=== PATIENT | female | born 1940 | race Caucasian/White ===

== ENCOUNTER 2016-03-31 07:55 | Day surgery (SDC) | payer MEDICARE, OTHER ==
[2016-03-31] VITALS (8 sets, daily range): BP systolic 120–156; BP diastolic 57–77; PULSE 57–75; RESP 13–19; O2SAT 94–98
[~2016-03-31] VITALS: Ht 165.1 cm; Wt 93.6 kg
[~2016-03-31 07:55] MED LIST: AMLO5TAB2 PO; ATEN50TA PO; CALC-78 PO; CeFAZolin Inj 2 GM in IV Premix 1 EACH IV SCH; ESOM20CA28 PO; GABA-502 PO; MULT-1073 PO; PRAV40TA PO
[2016-03-31] MEDS ORDERED: Ondansetron 2 mg/mL 2 mL Inj ONE (07:56)
[2016-03-31] MEDS ORDERED: fentaNYL-PF 50 mCg/mL 2 mL Inj ONE (07:56)
[2016-03-31] MEDS ORDERED: Propofol 10,000 mCg/mL 20 mL Inj ONE (07:56)
[2016-03-31] MEDS ORDERED: Dexamethasone 4 mg/mL Inj ONE (07:56)
[2016-03-31] MEDS: Lactated Ringer's 1,000 ML IV SCH ×2 (08:13→10:49)
[2016-03-31] MEDS ORDERED: Bupivacaine-MPF 0.5% W/EPI 30 mL Inj INJ ONE (11:16)
[2016-03-31] MEDS ORDERED: HYDROmorphone 1 mg/mL Inj IVPUSH PRN (11:30)
[2016-03-31] MEDS ORDERED: Phenylephrine 10,000 mCg/mL Inj IVPUSH PRN (11:30)
[2016-03-31] MEDS ORDERED: Lactated Ringer's 500 ML IV PRN (11:30)
[2016-03-31] MEDS ORDERED: Ondansetron 2 mg/mL 2 mL Inj IVPUSH PRN (11:30)
[2016-03-31] MEDS ORDERED: MetoCLOpramide 5 mg/mL 2 mL Inj IVPUSH PRN (11:30)
[2016-03-31] MEDS ORDERED: Lactated Ringer's 1,000 ML IV SCH (11:30)
[2016-03-31] MEDS ORDERED: Dexamethasone 4 mg/mL Inj IVPUSH PRN (11:30)
[2016-03-31] MEDS ORDERED: EPHEDrine Sulfate 50 mg/mL Inj IVPUSH PRN (11:30)
[2016-03-31] MEDS ORDERED: fentaNYL-PF 50 mCg/mL 2 mL Inj IVPUSH PRN (11:30)
--- NOTE | 2016-03-31 11:30 | PCM.HPANE ---
Patient Data Surgeon Admitting Provider: Attending Provider:Willi Melo MD Primary Care Physician:Angelito Lopez MD Other Provider:Caden Shaw Anesthesia Reason for Visit Left Breast Mass Ht/WT & BMI Height (Feet): 5 Height (Inches): 5 Weight (Kilograms): 93.6 Body Mass Index 34.00 Allergies Coded Allergies: No Known Drug Allergies (Verified Allergy, Unknown, 03/31/16) Past Anesthesia History Anesthesia History: Positive for:: Anesthesia Reactions (TROUBLE WAKING UP AFTER ANESTHESIA), Denies:: Abnormal Airway, Difficult Intubation, Fam Anesthesia Reaction, Fam Malignant Hypertherm, Malignant Hyperthermia Diabetes History Hx Diabetes?: No MRSA MRSA: No Medications Blood Thinner: Aspirin Home Meds Incl Beta Carola: Yes (ATENOLOL) Date Beta Carola Taken: Mar 31, 2016 Time Beta Carola Taken: 06 Reported Medications Multivits-Min/FA/Lycopene/Lut (Centrum Silver Tablet)1 Each Tablet1 Each PO DAILY 12/04/15 Gabapentin 300 Mg [id number] Mg PO TID Ref 0 08/23/15 Calcium Carbonate/Vitamin D3 (Calcium 500 + Vit D Caplet)1 Each Tablet5,000 Units PO DAILY 08/23/15 Amlodipine 5 Mg Tablet5 Mg PO DAILY Ref 0 02/22/15 Esomeprazole Magnesium (Nexium)20 Mg Capsule.dr20 Mg PO DAILY 30 Days Ref 0 10/09/13 Atenolol 50 Mg Kljrva65 Mg PO DAILY #30 TABLET Ref 0 10/09/13 Discontinued Reported Medications Pravastatin 40 Mg [id number] Mg PO DAILY Ref 0 08/23/15 oxyCODONE-Acetaminophen 7.5-325 mg 1 Each Tablet1-2 Tab PO Q6H PRN For Pain Ref 0 08/23/15 Multivits-Min/FA/Lycopene/Lut (Centrum Silver Tablet)1 Each Tablet1 Each PO DAILY 08/23/15 History History of ENT Problems?: Yes HEENT History: Positive for:: Cataracts (had surgery) Dysphagia (A LITTLE BIT WITH HER ABNORMAL NECK PAIN. 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) Denies:: Asthma Hemoptysis Use of C-PAP Machine Hx Neurologic Problems?: Yes Neurological History: Positive for:: Dizziness Headaches Denies:: CVA Dementia Hx of GI Problems?: Yes Gastrointestinal History: Positive for:: Gastroesphageal Reflux Rectal Bleeding (HX OF INTERMITTANT CONSTIPATION/DIARRHEA) Denies:: Cirrhosis Diverticulitis Hiatal Hernia Other GI Pertinent History: HX OF ABDOMINAL PAIN Hx of Problems?: Yes Genitourinary History: Positive for:: Kidney Stones (S/P MULT STONE EXTRACTIONS/ESWL) Urinary Tract Infection (HX OF, CHRONIC CYSTITIS/RECURRENT UTI'S ) Other Pertinent History: HX OF NEPHROLITIASIS Female Hx: Positive for:: Problems with Breasts? (LEFT BREAST MASS) Denies:: Currently Pelvic Inflammatory (STATES HAS PELVIC PRESSURE) Skin History: Denies:: History Skin Disorders? Pressure Ulcers Hx Musculoskeletal Problems?: Yes Musculoskeletal History: Positive for:: Back Injury (HX OF CERVICAL FX 2013 C/OF LUMBAR/CERVICAL RADICULOPATHY) Osteoarthritis Denies:: Joint Replacement Psycho Social History: Positive for:: Anxiety (PANIC ATTACKS) Hx Depression Hx Surgeries?: Yes (PARTIAL LT NEPHRECTOMY,HYST/BSO,MULT KIDNEY STONE EXTRACTIONS/ESWL,L5 MICRO) Hx Any Other Health Problems?: Yes Other History: Positive for:: Hospitalization Denies:: Cancer Endocrine Disease Thyroid Disease History Blood Transfusions: Positive for:: Accept Blood Products? Denies:: Blood Transfusions Hx Diabetes: No Hx Alcohol Use: YesHx Substance Use: No Smoking Status: Former Smoker Have You Smoked inLast 12 mo: No Stop/Bang S-Snoring: Do You Snore Loudly: No T-Tired: feel tired, fatigued: Yes O-Obsered: Observed not breath: No P-Blood Pressure: treated: Yes B- Body Mass Index > 35 kg/m2: No A- Age over 50: Yes N- Neck Large Circumference: No G- Gender Male: No CARA Total Score: 3 Risk Assessment Category Category 1A: Patient has history of documented sleep apnea, and HAS NOT received any narcotic, sedative or anesthesia administration during this stay. Category 1B: Patient has history of documented sleep apnea, and HAS received any narcotic , sedative or anesthesia administration during this stay Category 2: Patient has SUSPECTED Obstructive Sleep Apnea, and HAS received any narcotic , sedative or anesthesia administration during this stay. Category 3: Patient has SUSPECTED Obstructive Sleep Apnea and HAS NOT received narcotic, sedative or anesthesia administration during this stay. Category 4: Outpatient in Procedural Areas with known sleep apnea or who screen positive for High Risk via the STOP/BANG questionnaire. Exam Exam Vital Signs Vital Signs Date Time Temp Pulse Resp B/P Pulse Ox O2 Delivery O2 Flow Rate FiO2 03/31/16 08:27 36.2 75 18 156/60 97 Room Air General Appearance: Alert, Oriented X3, Cooperative, No Acute Distress HEENT/AIRWAY: MP 2 Lungs: Clear to Auscultation Heart: Exam Unremarkable Meds/Labs/Diagnostics Admission Meds Current Medications Lactated Ringer's (Lr) 1,000 ml @ 10 mls/hr Q24H IV Last administered on t 08:13; Start 03/31/16 at 05:00; Stop 04/04/16 at 08:59 Plan Impression Patient chart reviewed, patient interviewed and anesthestic plan with risks, benefits, and alternatives discussed, and informed consent obtained. NPO Status: 03/31/16 SIP OF WATER ASA Physical Status: ASA3 Severe Disease (copd, htn) Anesthetic Plan: GA, MAC Bene/Risks/Altern/Consents: Yes HP Complete Prior to Induction: Yes Antione Pena MD Mar 31, 2016 09:10
--- NOTE | 2016-03-31 11:49 | PCM.DISURG ---
Surgical Discharge Instruction Date of Service Mar 31, 2016 Dates of Hospitalization Date of Hospital Admission Providers Admitting Physician: Primary Care Physician: Angelito Lopez MD Attending Physician: Willi Melo MD Discharge Diagnosis Discharge Diagnosis Left nipple discharge Diet Discharge Diet: No restrictions Activity Discharge Activity-General: No restrictions Dressing and Incisional Care Dressing Care: Allow Steri Stripes to fall off, Remove outer dressing after 24 hrs Hygiene: May shower after (24 hours) Follow Up Plan Follow Up Plan With Dr. Melo in 2 weeks Call your provider for: Fever (over 101.5), Discharge @ incision, pus discharge Willi Melo MD Mar 31, 2016 11:49
[2016-03-31] MEDS ORDERED: HYDROcodone-APAP 5-325 mg Tablet PO PRN (11:50)
--- NOTE | 2016-03-31 11:54 | PCM.SURGOP ---
Surgical Operative Report Date of Service: Mar 31, 2016 Pre Operative Diagnosis Left nipple discharge Post Operative Diagnosis Same Procedure: Left breast subareolar duct excision Surgeon and Federal Java Developer: Surgeon: Willi Melo MD Assistants: Yeny Little PA-C Indication for Procedure 76-year-old woman who presented with 2 years of left nipple discharge. It was episodic, usually clear, occasionally bloody. She also has fullness or of density in the lateral left breast near the nipple. She had diagnostic mammograms in the left breast ultrasound, which were normal. In the office, her blood discharge was not reproducible. After discussion of risks and benefits, she agreed to proceed with a left breast excisional biopsy. Findings: There was reproducible yellowish nipple discharge from the lateral left breast, so a duct excision was performed after injecting methylene blue into the draining duct. Procedure Details After smooth induction of general anesthesia with an LMA, she was placed in the supine position with the left arm out, and was prepped and draped in wide sterile fashion. A procedural pause was performed according to the SCOAP checklist, and all were found to be in agreement. Palpation of the left lateral breast revealed mild fullness, but a small amount of yellowish nipple discharge was able to be reproduced. A Rabinov needle was inserted into the draining duct, and approximately 1 mL of methylene blue was injected into the duct. A circumareolar incision was then made laterally. Dissection was carried down through the subcutaneous tissue. The nipple areolar complex was elevated. A lacrimal duct probe was also passed through the draining duct for palpation. The duct was disconnected from the subareolar tissue. Methylene blue was visualized draining towards the 4 o'clock position. Duct excision was performed by following the lacrimal duct probe and the visible methylene blue. There is no obvious mass. There were several small cysts which were encountered. That tissue was dissected free, oriented with suture, and sent for permanent pathology. The cavity was marked with hemoclips. The incision was closed with an interrupted deep dermal 3-0 Vicryl suture, and a running 4-0 Vicryl subcuticular stitch. Steri-Strips and sterile dressings were applied. At the end of the case all needle and sponge counts were correct 2. The patient was awakened from anesthesia without difficulty, and taken to the recovery room in satisfactory condition, having tolerated the procedure well. Complications There were no periprocedural complications identified. Surgical Specimen Removed: Yes Specimen sent to Pathology: Yes Surgical Specimen description: Left breast subareolar duct excision Anesthetic Plan: GA Grafts, Implants: None Output, Estimated Blood Loss: 10 Blood Administration during tillman: No Drains: None Catheters: None copies to: Junior Contreras MD; Angelito Lopez MD, Joshua D MD Mar 31, 2016 11:54
--- NOTE | 2016-03-31 12:30 | PCM.ANEP1 ---
Post Anesthesia Phase 1 PACU Phase 1 Assessment Date of Service: Mar 31, 2016 Vital Signs Vital Signs Date Time Temp Pulse Resp B/P Pulse Ox O2 Delivery O2 Flow Rate FiO2 03/31/16 08:27 36.2 75 18 156/60 97 Room Air Anesthetic Administered: GA Level of Alertness: Awake, talking CEJA's with Equal Strength: Yes Pain: No Nausea or Vomiting: No Oxygen Delivery: Room Air Lungs: Clear to Auscultation Dermatome Level: Full Sensation Antione Pena MD Mar 31, 2016 12:30
--- NOTE | 2016-03-31 12:31 | PCM.ANEP2 ---
Post Anesthesia Evaluation ASA/CMS Post Anesthesia VS in Patient's Normal Range?: Yes Resp Stable; Airway Patent?: Yes CV Function & Hydration Stable: Yes Mental Status Recovered?: Yes Pain control Satisfactory?: Yes N/V Control Satisfactory?: Yes Antione Pena MD Mar 31, 2016 12:30
--- NOTE | 2016-04-02 15:01 | PATH ---
SURGICAL PATHOLOGY Attending Physician:William Recinos CASE STATUS: Signed Out PATIENT NAME: LYDIA MILNER PID: [id number] : 1940 DATE COLLECTED:03/31/2016 23:36 SPECIMEN: Breast mass, oriented CLINICAL HISTORY: LEFT BREAST MASS 1). LEFT BREAST DUCT EXCISION FINAL DIAGNOSIS: 1.SPECIMEN DESIGNATED LEFT BREAST DUCT EXCISION: BREAST EXCISIONAL SPECIMEN (6.1 X 4.7 X 2.7 CM). MULTIPLE DILATED DUCTS (DUCT ECTASIA) WITH MULTIPLE INTRADUCTAL PAPILLOMAS MEASURING UP TO 0.1 CM, ALL NEGATIVE FOR ATYPIA AND MALIGNANCY. ONE SMALL PAPILLOMA PRESENT EXTREMELY CLOSE TO THE INKED LATERAL EXCISIONAL MARGIN, AND TWO PAPILLOMAS PRESENT EXTRELELY CLOSE TO THE INKED INFERIOR RESECTION MARGIN. ICD10 CODE D24.2 GROSS DESCRIPTION: The specimen is received in formalin, labeled with the patient's name, sublabeled as left breast duct excision and consists of a piece of breast tissue (6.1 cm AP, 4.5 slides 4.7 2.7 cm SI, 4.7 cm ML) with no overlying skin. The specimen is oriented with 3 black sutures (short-superior, long-lateral, double-nipple margin). No localization wire is present. The specimen is serially sectioned SI into 13 slices with the superior and inferior resection margins slices #1 and #12 respectively. The breast tissue is fatty and partially stained blue. No nodules, masses or lesions are identified. Ink code: red-nipple margin; purple-anterior; yellow-posterior; black-superior; orange-inferior; green-medial; blue-lateral. Section code: (A) superior resection margin, perpendicularly sectioned; (B-C) slice #2, bisected and submitted AP; (D-E) slice #3, spliced and bisected; (F) slice #4; (G-H) slice #5, bisected and submitted AP; (I-J) slice #6, bisected and submitted AP; (K-L) slice #7, bisected and submitted AP; (M-N) slice #8, bisected and submitted AP; (O) slice #9; (P) slice #10; (Q) slice #11; (R) slice #12; (S) inferior resection margin, perpendicularly sectioned. Specimen entirely submitted. Note: The approximate total fixation time in formalin-29 hours and 30 minutes calculated using a collection date of March 31, 2016 with no collection time given. 04/01/16 MICRO DESCRIPTION: See diagnosis. ICD-9 CODES: CPT CODES: 1: 05883 Electronically Signed Out Tommy Mahoney MD [facility] [address], [place] [address] Technical component performed at [facility], [facility] [address], [place], [address]
[2016-04-03] MEDS ORDERED: PRAV40TA PO (14:25)
[2016-06-17] MEDS ORDERED: OXYC1TAB24 PO (13:22)
[2016-06-17] MEDS ORDERED: TIOT18CA3 IH (13:22)
== END 2016-03-31 23:59 | disposition home or self-care (01) ==
LOC: SAS 07:55
PROVIDERS: ATTEND Student in an Organized Health Care Education/Training Program
DX: D24.2 Benign neoplasm of left breast (principal); I10 Essential (primary) hypertension; N30.20 Other chronic cystitis without hematuria; Z79.82 Long term (current) use of aspirin
CPT/HCPCS: 19120; 88307; J0690; J1100; J2250; J2405; J7120

== ENCOUNTER 2016-04-06 12:49 | Day surgery (SDC) | payer MEDICARE, OTHER ==
[~2016-04-06] VITALS: Ht 165.1 cm; Wt 94.0 kg
[~2016-04-06 12:49] MED LIST changes: -CeFAZolin Inj 2 GM in IV Premix 1 EACH IV SCH; +Sodium Chloride LOK Flush 10 mL Syringe IV PRN; +fentaNYL-PF 50 mCg/mL 2 mL Inj IVPUSH PRN
[2016-04-06 14:58] VITALS: BP 171/81; PULSE 60; RESP 16; O2SAT 95
[2016-04-06] MEDS: 0.9% Sodium Chloride 1,000 ML IV PRN ×2 (15:41→16:01)
--- NOTE | 2016-04-06 16:06 | PCM.ENDEGD ---
EGD Date of Service: Apr 06, 2016 Physician Joel Pichardo MD Indication for Procedure Reflux Post Procedure Dx & Findings: Hiatal hernia from the diverticulum Procedure Esophagogastroduodenoscopy PROCEDURE IN DETAIL: The patient was placed in left lateral decubitus position. Bite block was placed. Scope lubricated, placed in posterior pharynx, passed through the cricopharyngeus and esophagus, slowly advanced the entire length of the gastric pouch, pylorus was identified, scope passed through the pylorus and descending portion of duodenum, withdrawn in the antrum, retroflexed upon itself for view of fundus and cardia. Scope was then withdrawn through the oropharynx. The esophagus was unremarkable. However there was a 6 cm hiatal hernia. Stomach was normal with normal antrum pylorus body fundus and cardia. Retroflexion was done. Stomach was easily inflatable and deflated using air. Scope further advanced to the distal duodenum. In the first and the second pass of the duodenum, there were 2 large diverticulum. Obviously we were not able to see the inside of the diverticulum completely. 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 Patient monitoring Continuous pulse oximetry, cardiac monitoring, blood pressure monitoring, IV access, and oxygen at 2L per nasal cannula. Periprocedural Fentanyl: Fentanyl 125mcg Incrementally Midazolam: Midazolam 6mg Incrementally Complications There were no periprocedural complications identified. Post Procedure Plan Post Procedure Recommendations 1. Restrict activities today. 2. Resume normal activities in the morning. 3. Resume medications. 4. GERD behavioral modification: - Avoid fatty, acidic, spicy, large meals - Do not lie down after meals - Do not eat or drink anything for at least 2 1/2 hours before going to bed at night - Discontinue tobacco and alcohol - Decrease or avoid caffeine - Avoid chocolate and mints - Decrease weight - Avoid aspirin and non steroidal anti-inflammatory agents (NSAID) such as Aleve, Advil, Mobic, Naproxen, Ibuprofen, etc 5. Add proton pump inhibitor. Take 30 minutes before 1st meal of the day. 6. Patient informed of normal post procedure side effects as bloating, drowsiness, blood streaking in the stool 7. If gastric biopsy reveal H.pylori, continue with appropriate treatment 8. If small bowel biopsy reveals celiac, continue with appropriate treatment 9. Please don't hesitate to call me with any questions Joel Pichardo MD Apr 06, 2016 16:06
[2016-04-06 16:10] VITALS: BP 151/69; PULSE 69; RESP 16; O2SAT 95
[2016-04-06 16:19] VITALS: BP 164/95; PULSE 70; RESP 14; O2SAT 94
[2016-06-17] MEDS ORDERED: OXYC1TAB24 PO (13:22)
[2016-06-17] MEDS ORDERED: TIOT18CA3 IH (13:22)
== END 2016-04-06 23:59 | disposition home or self-care (01) ==
LOC: END 12:49
PROVIDERS: ATTEND Internal Medicine
DX: K44.9 Diaphragmatic hernia without obstruction or gangrene (principal); K57.10 Diverticulosis of small intestine without perforation or abscess without bleeding; K21.9 Gastro-esophageal reflux disease without esophagitis; I10 Essential (primary) hypertension; E66.9 Obesity, unspecified; Z87.891 Personal history of nicotine dependence; Z68.33 Body mass index [BMI] 33.0-33.9, adult

== ENCOUNTER 2016-06-23 09:28 | Day surgery (SDC) | payer MEDICARE, OTHER ==
--- NOTE | 2016-06-18 19:15 | PCM.HPSURG ---
Subjective Date of Service: Jun 17, 2016 Referring Provider: Admitting Physician: Primary Care Physician: Angelito Lopez MD Attending Physician: Wilbur Puente MD Chief Complaint SEE BELOW History of Present Illness Patient: Yasmine Aldana Date of : 1940 Visit Type: Pre Op Visit Date: 06/17/2016 10:45 AM This 76 year old female presents for Preop Left Carpal Tunnel Release. History of Present Illness: 1. Preop Left Carpal Tunnel Release Yasmine Aldana is a 76 year old female referred by Primary care Provider (PCP) Dr. Ezequiel Lopez M.D. who presents today's date 06/17/2016 for a preoperative type of appointment concerning the decision for surgery involving left carpal tunnel release secondary to a diagnosis of left carpal tunnel syndrome with related complaints of severe, intractable, and debilitating left hand pain, weakness, numbness, & paresthesias. The patient was last evaluated by Dr. Wilbur Puente M.D. on 05/28/2016 documenting that the severity of her left carpal tunnel syndrome symptoms are severe & unchanged. He also notes that she is left-handed. The problem occurs intermittently and she is affected on the left side. She presents with decreased medicare nurse strength, loss of sensation in the fingers, numbness in the fingers, & sense of weakness in the hand. The onset has been insidious. Symptoms are aggravated by driving & reported worse last hand intensive activity. Risk factors included she is a female. Relieving factors include frequent breaks from repetitive activities. The associated symptoms include joint pain, numbness, paresthesias, swelling wrist joint, tenderness (resident ( & weakness. Pertinent negatives include crepitus, decreased mobility, difficulty sleeping, fever, spasms, tingling in arms, tremors, & wrist locking. According to Dr. Puente patient has carpal tunnel syndrome on both sides. She had a good recovery from her right carpal tunnel release, would like to proceed with surgery for her left carpal tunnel syndrome, & per Dr. Puente she is a good candidate for the proposed procedure. Dr. Puente & the patient discussed other risks and benefits associated with the procedure as well as reasonable expectations with respect surgical outcomes, & the patient also acknowledges is that she is aware of the typical recovery process; therefore the patient elects to proceed with surgery as planned. The patient denies any related complete or acute loss of control of bowel or bladder function, saddle paresthesia or anesthesia. The patient has a pertinent positive past medical, surgical and social history for partial nephrectomy, hysterectomy, lumbar laminectomy/decompression, cyst removal, right CTR, obesity, hypertension, rheumatoid arthritis, mild COPD, history of chest pain, history of abdominal pain, history of diarrhea/ constipation, nocturia, stress incontinence, history of smoking, history of nephrolithiasis, childhood history of TB, frequent headaches, depression & anxiety. The patient's related complaints have been a serious detriment to their happiness and activities of daily living. Having failed conservative treatment the patient presents today for their decision for surgery appointment involving left carpal tunnel release for treatment of left carpal tunnel syndrome; related to severe, intractable, and debilitating left hand pain, numbness, weakness, & paresthesias. The procedure is scheduled to be performed by Dr. Wilbur Puente M.D. on 06/23/2016. ANESTHESIA NOTE: We have requested anesthesia consultation for review of past Pulmonary clearance documentation,comorbidities, & MAC anesthesia. Problem List: Problem Description Benign essential hypertension Obesity (BMI 30-39.9) Pelvic pressure in female Hypertension, Benign History of nephrolithiasis Abdominal pain History of recurrent UTIs Back pain Low back pain Preoperative examination Abdominal pain Chronic cystitis Kidney stone GERD Problem List (not yet mapped to SNOMED-CT): Problem Description Tuberculosis, Personal HX Arthritis, NOS Hyperlipidemia, NOS Reviewed, no change. Last detailed document date:06/17/2016. Family History: Reviewed, no changes. Last detailed document date:06/17/2016. Social History (Reviewed, updated) 06/17/2016 Tobacco use reviewed. Preferred language is Kazakh. The patient does not need an support analyst. Marital Status/Family/Social Support Currently . Smoking status: Former smoker. Smoking Status Use Status Type Smoking Status Years Used Total Pack Years yes Cigarette Former smoker 53.00 53.00 CAFFEINE The patient uses caffeine: coffee - 3 cups a day. Allergies: Ingredient Reaction Medication Name Comment NO KNOWN ALLERGIES Reviewed, no changes. Review of Systems System Neg/Pos Details Neuro Positive Dizziness, Headache. Positive Dysuria, Nocturia. Cardio Positive Leg swelling. Respiratory Positive Dyspnea. MS Positive Back pain, Muscle weakness, Myalgia, Neck stiffness. Endocrine Negative Weight gain and weight loss. Neuro Negative Seizures. GI Negative Abdominal pain, constipation, diarrhea, nausea and vomiting. Kai/Lymph Negative Blood clots. Negative Urge incontinence and urinary incontinence. Constitutional Negative Chills and fever. Eyes Negative Double vision and vision loss. MS Negative Bone/joint symptoms. Cardio Negative Chest pain, irregular heartbeat/palpitations and pacemaker. ENMT Negative Hearing loss. Psych Negative Anxiety and depression. Respiratory Negative Apnea and wheezing. Integumentary Negative Mrsa and rash. Vital Signs Height Time ft in cm Last Measured Height Position % 10:15 AM 5.0 6.00 167.64 01/17/2016 Weight/BSA/BMI Time lb oz kg Context % BMI kg/m2 BSA m2 10:15 AM 210.20 95.345 dressed with shoes 33.93 2.11 Blood Pressure Time BP mm/Hg Position Side Site Method Cuff Size 10:15 AM 141/82 sitting left wrist automatic adult Temperature/Pulse/Respiration Time Temp F Temp C Temp Site Pulse/min Pattern Resp/ min 10:15 AM 98.3 36.8 66 regular Pain Scale Time Pain Score Method 10:15 AM 6/10 Numeric Pain Intensity Scale Measured By Time Measured by 10:15 AM Connie Aguirre MA Screening Summary:o The following were reviewed: tobacco use, alcohol use, caffeine use and date of last mammogram Physical Exam Exam Findings Details Comments WD/WN, elderly obese female who is AO x 3, cooperative & appears to be in NAD w/ language & speech that is intact & fluent. There is no evidence of recent or remote memory impairment. The patient's knowledge is appropriate for age & level of education w/ a pleasant affect & euthymic mood. Ambulates w/ no difficulty. NC/AT, PERRL, EOMI, w/o facial droop, hearing grossly intact, nostrils patent, oral cavity and pharynx normal. Neck supple, w/o LAD or thyromegaly. Heart reveals RRR w/o audible murmurs Lungs CTAB Abdomen is NT/ND There is diminished pinprick and light touch sensation in the left hand following the median nerve distribution in the thumb and first 2 fingers. There is a well-healed scar from carpal tunnel release on the right palm. Sensation is normal in the right hand. + Tinel sign at the left wrist. + tenderness to the left wrist. Mildly diminished left handgrip strength at 4/5 compared 5/5 on the right. The rest the upper extremity is normal in strength. Assessment/Plan # Detail Type Description 1. Assessment Left carpal tunnel syndrome (G56.02). 2. Assessment Preoperative examination (Z01.818). Provider Plan The patient's history and examination as well as radiological findings were reviewed with Dr. Wilbur Puente M.D. and conveyed the patient in detail. The findings are consistent with left carpal tunnel syndrome and are most likely the cause of the patient's severe, intractable, and debilitating left hand pain , weakness, numbness, & paresthesias. The patient has failed extensive conservative treatment for this condition. The treatment options were discussed with the patient. The options include attempt to live with the condition, reattempt conservative treatment, try a pain management intervention / injection or consider a surgical intervention. We are not extremely optimistic that further conservative treatment, pain management intervention and/or injection will adequately resolve the patient's symptoms of severe, intractable, and debilitating left hand pain, weakness, numbness, & paresthesias. Therefore we recommend left carpal tunnel release. The patient was provided/offered educational materials pertaining to their diagnosis and the above discussed procedure. We discussed the risks and benefits associated with this surgery. A spine model was used to explain the nature of this type of surgery. The risk of the required anesthesia was also mentioned including but not limited to organ failure such as heart attack, pneumonia and stroke even . The risk of this type of surgery was also mentioned. Including but not limited to an unsuccessful outcome, residual symptoms, sensory changes, blood loss, blood clots, wound infection, nerve damage, damage to neighboring structures resulting resulting in temporary or permanent dysfunction, even disability, paralysis, and . The recovery of this type of surgery was also mentioned for at least 6 weeks. However if there has been a long-standing compression of the nerve with altered nerve function full recovery may not be fully guaranteed. In these instances return to function is slightly determined by the degree of compression and for how long the nerve was compressed. The patient verbalized understanding all the risks and benefits, knowing that it is impossible to predict or guarantee every surgical outcome; and would like to proceed with the above discussed procedure anyways. Surgery is scheduled for 06/24/2015 The standard Located Within [facility] preoperative screening tests, medicine restrictions, and logistical protocols apply. Any preoperative testing is within normal limits to undergo the above discussed procedure unless otherwise noted in the medical record. ANESTHESIA NOTE: We have requested anesthesia consultation for review of past Pulmonary clearance documentation,comorbidities, & MAC anesthesia. Medications (added, continued or stopped this visit): Start Date Medication Directions Stop Date 02/15/2016 amlodipine 5 mg tablet take 1 tablet by oral route every day 02/14/2016 atenolol 50 mg tablet take 1 tablet by oral route daily CALCIUM 500-VIT D3 01/04/2009 CENTRUM take 1 tablet by ORAL route every day 02/14/2016 gabapentin 300 mg capsule take 3 capsule by oral route 3 times every day 01/07/2016 Nexium 20 mg capsule,delayed release take 1 capsule (20MG) by ORAL route every day 06/22/2016 Percocet 5 mg-325 mg tablet take 1 tablet by oral route every 6 hours as needed for pain Counseling/Educational Factors: Counseling / educational factors reviewed. Counseling / educational factors reviewed. This is a visit of 60 minutes. 50 minutes were spent counseling. This document may have been created using voice recognition software or other electronic means and may contain inadvertent veneer glue spreader errors. Provider: Kaushal SAMUEL 06/17/2016 12:15 PM Document generated by: Kaushal Summers 06/17/2016 12:15 PM CC Providers: Ezequiel Lopez [address] [place] [phone] Ezequiel Lopez [address] [place] [address] [phone] [place] [phone] selena noble i n i c s . o r g Allergy Allergies: Coded Allergies: codeine (Verified Adverse Reaction, Severe, N&V, 06/17/16) gabapentin (Verified Adverse Reaction, Severe, N&V,URINARY PROBLEMS (PT IS TAKING DRUG), 06/17/16) Social History Hx Alcohol Use: Yes (6/MONTH) Hx Substance Use: No Hx Tobacco Use: Yes (QUIT IN 2003 - SMOKED FOR 53 YEARS.) PMH HEENT History History of ENT Problems?: Yes HEENT History: Positive for:: Cataracts (S/P EXTRACTIONS) Dysphagia (UPPER DYPHAGIA) Hearing Problem Sinus Problem (CHRONIC RHINITIS) Denies:: Abnormal Airway Difficult Intubation Cardiovascular History History of Heart Problems?: Yes Cardiovascular History: Positive for:: Chest Pain (DEEMED NON-CARDIAC) Edema (PEDAL) Hypertension (HYPERLIPIDEMIA) Denies:: AICD Atrial Fibrillation Heart Murmur Pacemaker Valvular Heart Disease Respiratory History of Respiratory Problem: Yes Respiratory History: Positive for:: COPD (PULM NOTE/PFT 07/2015 SHOW BORDERLINE OBSTRUCTION) Cough Dyspnea (SOB/ZAZUETA (DOES NOT WALK 1 BLOCK)) Pneumonia Tuberculosis (AGE 11YRS; BLADDER LESIONS AGE 19YRS) Denies:: Asthma Hemoptysis Use of C-PAP Machine Neurological History Hx Neurologic Problems?: Yes Neurological History: Positive for:: Dizziness Headaches Denies:: CVA Dementia Gastrointestinal History HX of GI Problems?: Yes Gastrointestinal History: Positive for:: Gastroesphageal Reflux Rectal Bleeding (HX OF INTERMITTANT CONSTIPATION/DIARRHEA) Denies:: Cirrhosis Diverticulitis (DIVERTICULOSIS) Hiatal Hernia Genitourinary History Hx of Gu Problems?: Yes Genitourinary History: Positive for: Kidney Stones (S/P MULT STONE EXTRACTIONS /ESWL) Urinary Tract Infection (HX OF, CHRONIC CYSTITIS/RECURRENT UTI'S ) Other Pertinent History?: S/P LT PARTIAL NEPHRECTOMY R/T TB Female/Male History Reproductive History Female: Positive for: Problems with Breasts? (S/P LT BREAST DUCT EXCISION) Denies: Currently ? Pelvic Inflammatory DX (STATES HAS PELVIC PRESSURE) Skin History Skin History: Denies:: History Skin Disorders? Pressure Ulcers Musculoskeletal History Musculoskeletal History: Positive for:: Back Injury (HX OF CERVICAL FX 2012 ) Rheumatoid Arthritis Denies:: Joint Replacement Psycho Social History Psycho Social History: Positive for:: Anxiety (PANIC ATTACKS) Hx Depression Other History Hx Any Other Health Problems?: Yes Other History: Positive for:: Hospitalization Denies:: Cancer Endocrine Disease Thyroid Disease Diabetes: No Social History Hx Alcohol Use: Yes (6/MONTH)Hx Substance Use: NoHx Tobacco Use: Yes (QUIT IN 2003 - SMOKED FOR 53 YEARS.) Smoking Status: Former Smoker Kaushal Summers PA-C Jun 18, 2016 19:15
[~2016-06-23] VITALS: Ht 165.1 cm; Wt 93.5 kg
[~2016-06-23 09:28] MED LIST changes: +Bacitracin 50,000 unit Inj IRRIGATION ONE; +CeFAZolin 2 Gm/50 mL D5W Premix IV ONE; +OXYC1TAB24 PO; -PRAV40TA PO; -Sodium Chloride LOK Flush 10 mL Syringe IV PRN; -fentaNYL-PF 50 mCg/mL 2 mL Inj IVPUSH PRN
[2016-06-23] MEDS ORDERED: Ondansetron 2 mg/mL 2 mL Inj ONE (09:29)
[2016-06-23] MEDS ORDERED: Propofol 10,000 mCg/mL 20 mL Inj ONE (09:29)
[2016-06-23] MEDS ORDERED: fentaNYL-PF 50 mCg/mL 2 mL Inj ONE (09:29)
[2016-06-23] MEDS: Lactated Ringer's 1,000 ML IV SCH ×2 (09:38→13:21)
[2016-06-23] MEDS ORDERED: CeFAZolin Inj 2 gm / 50mL D5W IV ONE (09:43)
[2016-06-23 09:55] VITALS: BP 140/70; PULSE 58; RESP 14; O2SAT 94
[2016-06-23] MEDS ORDERED: Bacitracin 50,000 unit Inj ONE (12:58)
[2016-06-23] MEDS ORDERED: Bupivacaine 0.5%/EPI 50 mL Inj INFILTRATE ONE (13:21)
--- NOTE | 2016-06-23 13:29 | PCM.HPANE ---
Patient Data Date of Service: Jun 23, 2016 Surgeon Admitting Provider: Attending Provider:Wilbur Puente MD Primary Care Physician:Angelito Lopez MD Other Provider:Caden Shaw Anesthesia Reason for Visit Bilateral Carpal Tunnel Syndrome Ht/WT & BMI Height (Feet): 5 Height (Inches): 5 Weight (Kilograms): 93.5 Body Mass Index 34.00 Allergies Coded Allergies: No Known Allergies (Verified Allergy, Unknown, 06/23/16) Past Anesthesia History Anesthesia History: Positive for:: Anesthesia Reactions ("TROUBLE" AWAKENING AFTER ANESTHESIA), Denies:: Abnormal Airway, Difficult Intubation, Fam Anesthesia Reaction, Fam Malignant Hypertherm, Malignant Hyperthermia Diabetes History Hx Diabetes?: No Current Bedside Blood Glucose: 93 MRSA MRSA: No Medications Blood Thinner: Aspirin Hypertension Medication: Yes (AMLODIPINE) Home Meds Incl Beta Carola: Yes Date Beta Carola Taken: Jun 23, 2016 Time Beta Carola Taken: 0700 Reported Medications oxyCODONE-Acetaminophen 5-325 mg 1 Each Tablet1 Tab PO Q6H PRN For Pain Ref 0 06/17/16 Multivits-Min/FA/Lycopene/Lut (Centrum Silver Tablet)1 Each Tablet1 Each PO DAILY 12/04/15 Gabapentin 300 Mg [id number] Mg PO TID Ref 0 08/23/15 Calcium Carbonate/Vitamin D3 (Calcium 500 + Vit D Caplet)1 Each Tablet5,000 Units PO DAILY 08/23/15 Amlodipine 5 Mg Tablet5 Mg PO DAILY Ref 0 02/22/15 Esomeprazole Magnesium (Nexium)20 Mg Capsule.dr20 Mg PO DAILY 30 Days Ref 0 10/09/13 Atenolol 50 Mg Hedebx93 Mg PO DAILY #30 TABLET Ref 0 10/09/13 Discontinued Reported Medications Tiotropium Griffin (Spiriva)18 Mcg Cap.w.dev18 Mcg IH DAILY #1 PKG Ref 0 06/17/16 History History of ENT Problems?: Yes HEENT History: Positive for:: Cataracts (S/P EXTRACTIONS) Dysphagia (UPPER DYPHAGIA) Hearing Problem Sinus Problem (CHRONIC RHINITIS) Denies:: Abnormal Airway Difficult Intubation Hx of Heart Problems?: Yes Cardiovascular History: Positive for:: Chest Pain (DEEMED NON-CARDIAC) Edema (PEDAL) Hypertension (HYPERLIPIDEMIA) Denies:: AICD Atrial Fibrillation Heart Murmur Pacemaker Valvular Heart Disease Hx of Respiratory Problem?: Yes Respiratory History: Positive for:: COPD (PULM NOTE/PFT 07/2015 SHOW BORDERLINE OBSTRUCTION) Cough Dyspnea (SOB/ZAZUETA (DOES NOT WALK 1 BLOCK)) Pneumonia Tuberculosis (AGE 11YRS; BLADDER LESIONS AGE 19YRS) Denies:: Asthma Hemoptysis Use of C-PAP Machine Hx Neurologic Problems?: Yes Neurological History: Positive for:: Dizziness Headaches Denies:: CVA Dementia Hx of GI Problems?: Yes Gastrointestinal History: Positive for:: Gastroesphageal Reflux Rectal Bleeding (HX OF INTERMITTANT CONSTIPATION/DIARRHEA) Denies:: Cirrhosis Diverticulitis (DIVERTICULOSIS) Hiatal Hernia Hx of Problems?: Yes Genitourinary History: Positive for:: Kidney Stones (S/P MULT STONE EXTRACTIONS/ESWL) Urinary Tract Infection (HX OF, CHRONIC CYSTITIS/RECURRENT UTI'S ) Other Pertinent History: S/P LT PARTIAL NEPHRECTOMY R/T TB Female Hx: Positive for:: Problems with Breasts? (S/P LT BREAST DUCT EXCISION) Denies:: Currently Pelvic Inflammatory (STATES HAS PELVIC PRESSURE) Skin History: Denies:: History Skin Disorders? Pressure Ulcers Musculoskeletal History: Positive for:: Back Injury (HX OF CERVICAL FX 2012 ) Rheumatoid Arthritis Denies:: Joint Replacement Psycho Social History: Positive for:: Anxiety (PANIC ATTACKS) Hx Depression Hx Surgeries?: Yes (LAMI, LUMPECTOMY, CARPAL TUNNEL, CATARACTS, KIDNEY RESECTION) Hx Any Other Health Problems?: Yes Other History: Positive for:: Hospitalization Denies:: Cancer Endocrine Disease Thyroid Disease History Blood Transfusions: Denies:: Blood Transfusions Hx Diabetes: NoBedside Blood Glucose: 93 Hx Alcohol Use: Yes (6/MONTH)Hx Substance Use: No Smoking Status: Former Smoker Have You Smoked inLast 12 mo: NoApprox How Many Cigarettes/day: 53YR HX Stop/Bang S-Snoring: Do You Snore Loudly: No T-Tired: feel tired, fatigued: Yes O-Obsered: Observed not breath: No P-Blood Pressure: treated: Yes B- Body Mass Index > 35 kg/m2: No A- Age over 50: Yes N- Neck Large Circumference: No G- Gender Male: No CARA Total Score: 3 Risk Assessment Category Category 1A: Patient has history of documented sleep apnea, and HAS NOT received any narcotic, sedative or anesthesia administration during this stay. Category 1B: Patient has history of documented sleep apnea, and HAS received any narcotic , sedative or anesthesia administration during this stay Category 2: Patient has SUSPECTED Obstructive Sleep Apnea, and HAS received any narcotic , sedative or anesthesia administration during this stay. Category 3: Patient has SUSPECTED Obstructive Sleep Apnea and HAS NOT received narcotic, sedative or anesthesia administration during this stay. Category 4: Outpatient in Procedural Areas with known sleep apnea or who screen positive for High Risk via the STOP/BANG questionnaire. Exam Exam Vital Signs Vital Signs Date Time Temp Pulse Resp B/P Pulse Ox O2 Delivery O2 Flow Rate FiO2 06/23/16 09:55 35.9 58 14 140/70 94 Room Air General Appearance: Alert, Oriented X3, Cooperative, No Acute Distress HEENT/AIRWAY: MP 3 Lungs: Clear to Auscultation, Diminished Heart: Exam Unremarkable, Regular Rate/Rhythm, No Murmurs/Rubs/Gallops Meds/Labs/Diagnostics Admission Meds Current Medications Lactated Ringer's (Lr) 1,000 ml @ 120 mls/hr Q8H20M IV Last administered on 13:21; Start 06/23/16 at 05:00; Stop 06/23/16 at 13:19; Status DC Bupivacaine HCl/ Epinephrine Bitart (Sensorcaine 0.5%/EPI Inj) 50 ml STK-MED ONCE INFILTRATE Last administered on 06/23/16 13:21; Start 06/23/16 at 13:21; Stop 06/23/16 at 13:26; Status DC Bedside Blood Glucose: 93 Plan Impression Patient chart reviewed, patient interviewed and anesthestic plan with risks, benefits, and alternatives discussed, and informed consent obtained. NPO Status: 0700 ASA Physical Status: ASA3 Severe Disease Anesthetic Plan: MAC Bene/Risks/Altern/Consents: Yes HP Complete Prior to Induction: Yes Trino Ratliff DO Jun 23, 2016 13:29
[2016-06-23 13:43] VITALS: BP 130/59; PULSE 70; RESP 16; O2SAT 94
[2016-06-23] MEDS ORDERED: oxyCODONE-Acetamin 5-325 mg Tablet PO PRN (13:45)
--- NOTE | 2016-06-23 13:55 | PCM.DISURG ---
Surgical Discharge Instruction Date of Service Jun 23, 2016 Dates of Hospitalization Date of Hospital Admission Outpatient day surgery status Providers Admitting Physician: Primary Care Physician: Angelito Lopez MD Attending Physician: Wilbur Puente MD Discharge Diagnosis Discharge Diagnosis Status post left carpal tunnel release Post Operative diagnosis Status post left carpal tunnel release Additional Instructions Discharge Instructions POST OPERATIVE INSTRUCTIONS FOR CARPAL TUNNEL SURGERY Carpal tunnel syndrome is a disorder of the hand which can result in characteristic symptoms of pain and tingling (usually the thumb, index and middle fingers), loss of feeling in the hand, clumsiness and difficulty with manual activities. Description of Carpal Tunnel Syndrome The carpal tunnel is a narrow tunnel formed by the bones and ligaments of the wrist through which the nerves and tendons pass from the forearm to the hand. If the tendon linings become inflamed and swell, this can compress the main nerve of the hand (the median nerve) causing symptoms. This condition affects many people including laborers, typists, women and retired people alike. In most cases there is no obvious cause for the problem. Treatment Initial treatment can consist of splinting, and therapy. Definitive treatment is with surgical release of the carpal tunnel performed as a out-patient day procedure. Our preference is to perform this surgery under local anesthetic after the Anesthesiologist has given you some intravenous sedation. Dressings Your hand will be bandaged following your surgery. If you wish to take a shower , tape a plastic bag over your bandage and hold well above your head to prevent water dripping inside your dressing. These dressings can be changed by a Hand Therapist, a nurse or your doctor 7 and 14 days following surgery or as needed if they become soiled or saturated. You will only need dressing changes for the first two weeks or so until primary healing has occurred. Stitches Stitches will be removed by your nurse or provider 2 weeks after surgery. Smoking: Cigarette smoking (even just one or two!) can affect your healing and rate of complications. We therefore strongly recommend that you do not smoke for one month after your surgery. Medication: Take your usual and post operative medication as instructed. Aspirin: If you are taking aspirin under your doctor's orders (e.g. you have previously had a blood clot, stroke, heart attack, etc) it is preferable that you continue taking your aspirin. Otherwise you should avoid medicines containing aspirin for four days after surgery. Vitamin E: You should avoid medicines containing vitamin E for four weeks after surgery. Alcohol: Do not drink any alcohol (beer, wine, spirits) for one week after surgery. Food and Fluids: You may be constipated so have light meals with plenty of fluids (preferably 6- 8 glasses of water per day). Eat ample fresh fruit and vegetables. To reduce fluid retention, avoid salty foods. Activity We generally encourage gentle movements of the fingers within the dressing for the first few days. Keep your hand elevated above the heart for the first 48-72 hours to control swelling. Early movement is crucial to a good recovery and we will specify to you if you are to limit this mobilization in any way. You should be able to use your hand for eating, dressing and attending to hygiene needs straight after your operation. Please sleep with your hand elevated on a pillow beside you for the first week (at least) following surgery. Driving It is generally considered unsafe to drive with dressings in place. Your ability to drive safely will be determined by numerous factors relating your car and also your surgery. As a general rule, expect at least a week off driving or as long as you continue to take narcotic pain medications. Pain Pain is not usually a feature following this surgery. If you do have pain you should take your postoperative pain medications as directed. Recovery Generally speaking, carpal tunnel release is very successful surgery with a reliable outcome if pain is your only symptom. If there has been a long standing compression of the nerve with altered nerve function (numbness or weakness) your recovery may not be fully guaranteed. In these instances return of function is largely determined by the degree of compression and for how long the nerve was compressed. Work Your return to work will be largely determined by what you do with your hands at your place of work and whether the operation was to your dominant hand. A return to clerical duties can occur within days of surgery whereas it can be several weeks before returning to a manual job. Full strength and dexterity will not return until 3-6 months after surgery. Your Initial Follow-Up Schedule: Wound Checks in 1 & 2 weeks You should call your Doctor or go to the Emergency Department if you develop chest pain, shortness of breath, a temperature greater than 101.5 F , Increased pain/swelling/bruising, Change of color of any of your digits, Bleeding/ discharge/offensive odor or Any sudden loss of movement in your hand. Instructions Regarding Comfort & Pain Medication Use: During the recovery period , even with the use of pain medication, you may experience pain at the site of surgery. You may also have the same type of pain you had before surgery. Please use your pain scale as a guide for taking your pain medication. When your pain is greater than 4 out of 10, or when your pain reaches your personal tolerable level of pain, take your pain medication as prescribed. Use your pain medication on an 'as needed' basis. This means if your pain level is within your tolerable level of pain you DO NOT need to take the medication. As you get better, you will notice you can increase the time interval between doses and decrease the number of tablets you are taking, gradually taking less and less pain medication. Taking pain medication when it is not necessary (for example when your pain is tolerable or acceptable) can result in dangerous side effects and over- sedation. Signs and symptoms of over-sedation include: drowsiness, excessive sleeping, slow or difficult breathing, slurred speech, impaired thinking, confusion, impaired motor coordination. If you have any of these symptoms stop taking the medication and immediately contact your doctor. IF SYMPTOMS ARE LIFE THREATENING CALL 911. To decrease pain and swelling, frequently apply an ice pack for 20 min intervals with at least one hour off. When to take Acetaminophen for pain? If you don't have liver problems, allergies and/or Tylenol is not in your current pain medication. Take Extra Strength Tylenol 500mg 2 tabs by mouth every 6 hours as needed for pain. DO NOT EXCEED 8 TABS PER DAY. Follow Up Plan Follow Up Plan Follow-up with physician assistant manager trainee in outpatient neurosurgical clinic in 1 week for wound check. Follow-up Provider (F9): Kaushal Summers PA-C Additional Information Attending Statement All documentation reviewed and & orders authorized by Estevan Ramirez Scott PA-C Jun 23, 2016 13:55
[2016-06-23 14:12] VITALS: BP 141/69; PULSE 60; RESP 16; O2SAT 94
--- NOTE | 2016-06-23 14:37 | PCM.ANEP1 ---
Post Anesthesia Phase 1 PACU Phase 1 Assessment Date of Service: Jun 23, 2016 Vital Signs Vital Signs Date Time Temp Pulse Resp B/P Pulse Ox O2 Delivery O2 Flow Rate FiO2 06/23/16 14:12 60 16 141/69 94 Room Air 06/23/16 13:43 37. 70 16 130/59 94 Room Air 06/23/16 09:55 35.9 58 14 140/70 94 Room Air Anesthetic Administered: MAC Level of Alertness: Awake, talking CEJA's with Equal Strength: Yes Pain: Yes Airway Device: Nasal Airway Oxygen Delivery: Room Air Lungs: Clear to Auscultation, Diminished Dermatome Level: Full Sensation Trino Ratliff DO Jun 23, 2016 14:37
--- NOTE | 2016-06-23 15:47 | PCM.ANEP2 ---
Post Anesthesia Evaluation ASA/CMS Post Anesthesia Date of Service: Jun 23, 2016 VS in Patient's Normal Range?: Yes Resp Stable; Airway Patent?: Yes CV Function & Hydration Stable: Yes Mental Status Recovered?: Yes Pain control Satisfactory?: Yes N/V Control Satisfactory?: Yes Trino Ratliff DO Jun 23, 2016 15:47
--- NOTE | 2016-06-23 20:09 | OP ---
[address] [address] OPERATIVE REPORT PATIENT: LYDIA MILNER : 1940 MR#: [id number] ADMIT: 06/23/2016 JOB ID: [id number] DATE OF SURGERY: 06/23/2016 SURGEON: Wilbur Puente MD PREOPERATIVE DIAGNOSIS(ES): Left carpal tunnel syndrome. POSTOPERATIVE DIAGNOSIS(ES): Left carpal tunnel syndrome. PROCEDURE: Left carpal tunnel release. ANESTHESIA: Local with sedation. OPERATIVE PROCEDURE: The patient was brought to the operating room. IV sedation was administered by the anesthesiologist and monitors were placed. A tourniquet was applied to the left upper arm. The left forearm and hand were prepped and draped in a sterile fashion. An Esmarch bandage was applied to the arm and the tourniquet was turned on. Time-out was performed. IV antibiotics were given. The proposed incision area was injected with 0.5% Marcaine plain. A palmar incision was made beginning approximately 5 mm distal to the most distal wrist crease and extending for a length of 2.5 cm towards the space between the 3rd and 4th fingers. The incision was carried down through subcutaneous fat and then through the palmaris longus tendon and then the transverse carpal ligament was identified and incised sharply first with the scalpel. It was quite thick and under tension, and then blunt-tipped Metzenbaum scissors were used to extend the opening in the ligament proximally underneath the wrist crease and distally underneath the palm. Complete transection of the ligament was confirmed by visual inspection and by palpation. The area was irrigated and hemostasis was obtained with bipolar and the wound was closed with interrupted 4-0 nylon vertical mattress sutures. Sterile bulky dressing was applied and the tourniquet was let down. There were no intraoperative complications. Estimated blood loss 0.
== END 2016-06-23 23:59 | disposition home or self-care (01) ==
LOC: SAS 09:28
PROVIDERS: ATTEND Neurological Surgery
DX: G56.02 Carpal tunnel syndrome, left upper limb (principal); I10 Essential (primary) hypertension; E78.5 Hyperlipidemia, unspecified; M06.9 Rheumatoid arthritis, unspecified; J44.9 Chronic obstructive pulmonary disease, unspecified; F41.9 Anxiety disorder, unspecified; F32.9 Major depressive disorder, single episode, unspecified; K21.9 Gastro-esophageal reflux disease without esophagitis; E66.9 Obesity, unspecified; Z68.33 Body mass index [BMI] 33.0-33.9, adult; Z87.440 Personal history of urinary (tract) infections; Z87.442 Personal history of urinary calculi; Z90.710 Acquired absence of both cervix and uterus; Z87.891 Personal history of nicotine dependence; Z79.82 Long term (current) use of aspirin
CPT/HCPCS: 64721; J2250; J2405; J3010; J7120

== ENCOUNTER 2016-06-25 05:15 | Emergency (ER) | payer MEDICARE, OTHER ==
[~2016-06-25] VITALS: Ht 165.1 cm; Wt 93.6 kg
[~2016-06-25 05:15] MED LIST changes: -Bacitracin 50,000 unit Inj IRRIGATION ONE; -CeFAZolin 2 Gm/50 mL D5W Premix IV ONE
[2016-06-25 05:23] VITALS: BP 145/80; PULSE 84; RESP 16; O2SAT 96
--- NOTE | 2016-06-25 06:04 | ED.REPORT ---
HPI-Extremity Problem Upper Date of Service Jun 25, 2016 ED Provider: Danielito Martinez MD The patient is a 76 year old female with history of recent left carpal tunnel release, who presents to the emergency department complaining of increased pain , swelling, and bruising to her left wrist. She is currently taking Percocet for pain but this has only provided some relief. The surgery was competed a few days ago by Dr. Puente. She did not have similar symptoms with a previous carpal tunnel release. She has been constipated since being on the pain medication. She has been taking Colace at home with no relief. She denies elbow pain, shoulder pain, shortness of breath, fever, chills, diarrhea, or vomiting. She has chest pain intermittently but denies any new or different pains. Nursing Notes Stated Complaint: LEFT WRIST PAIN Chief Complaint: Extremity Trauma Nursing Notes Reviewed: Yes Allergies: Coded Allergies: No Known Allergies (Verified Allergy, Unknown, 06/23/16) Scheduled Amlodipine (Amlodipine) 5 Mg Tablet 5 MG PO DAILY Atenolol (Atenolol) 50 Mg Tablet 50 MG PO DAILY Calcium Carbonate/Vitamin D3 (Calcium 500 + Vit D Caplet) 1 Each Tablet 5,000 UNITS PO DAILY Esomeprazole Magnesium (Nexium) 20 Mg Capsule.dr 20 MG PO DAILY Gabapentin (Gabapentin) 300 Mg Capsule 900 MG PO TID Multivits-Min/FA/Lycopene/Lut (Centrum Silver Tablet) 1 Each Tablet 1 EACH PO DAILY Scheduled PRN oxyCODONE-Acetaminophen 5-325 mg (oxyCODONE-Acetaminophen 5-325 mg) 1 Each Tablet 1 TAB PO Q6H PRN PRN For Pain General Time Seen by MD: 06:02 Chief Complaint Wrist injury left Hx Obtained From: Patient, EMS Arrived By: Ambulance Onset Occurred: 3 days ago Symptom Duration: Since onset Location: : Wrist left Quality: Painful Severity: Current: Moderate Severity: Maximum: Severe Associated with: Reports: Swelling Additional Notes: +bruising Pertinent Negative: Pt denies other symptoms Recent Healthcare: No recent hospitalization, Recent doctor visit, Previous surgery Similar Sx Previous: No Past Medical History Past Medical History Hypertension COPD Tuberculosis at age 11 GERD Recurrent UTIs Kidney stones Rheumatoid arthritis Anxiety Depression Past Surgical History Carpal tunnel release, bilaterally Cataract surgery Multiple kidney stone extractions L breast duct excision Back surgery Kidney resection Family History Noncontributory Smoking History Former Smoker Social History Other Social History: Good social support, Local resident Ambulatory Status Independent Review of Systems Constitutional: Denies: Chills, Fever Musculoskeletal: Reports: Joint pain, Joint swelling Skin: Reports Bruising Complete sys rev & neg: except as marked. Respiratory: Denies: Shortness of breath Cardiovascular: Reports: Chest pain (chronic, intermittent) GI: Reports: Diarrhea, Denies: Constipation, Vomiting Physical Exam Initial Vital Signs Vital Signs (First) Date Time Temp Pulse Resp B/P Pulse Ox O2 Delivery O2 Flow Rate FiO2 06/25/16 05:23 36.4 84 16 145/80 96 Room Air Initial VS: Reviewed Head / Eyes: Atraumatic, Normocephalic, PERRL ENT: Mucous membranes moist, Conjunctiva normal, No scleral icterus Neck: Supple, Non-tender, Full range of motion Respiratory: Breath sounds normal, Clear to auscultation, No respiratory distress Cardiovascular: Regular rate & rhythm, Heart sounds normal, Intact distal pulses Abdomen / GI: Soft, Non-tender, No guarding, No rebound, No distention Lymphatic: No lymphadenopathy Lower Extremities: Vascular intact, Neuro intact, No swelling, No tenderness Skin: Warm, Dry, No cyanosis Neurologic: Alert, Oriented, Nonfocal Psychiatric: Mood/affect normal, Behavior normal, Normal thought content General/Constitutional: Awake, Alert, Cooperative Wrist / Hand: Vascular intact LUE: Her hand has a fresh post-operative wound in the longitudinal orientation as expected for carpal tunnel release with some scant serosanguineous drainage. There is significant edema in the palm and fingers. She has some flexion and extension range of motion. She has decreased sensation to light touch on the hypothenar eminence. Normal sensation in the fingers. She has no extreme pain to passive extension of the fingers. Proximally there is some dependent ecchymosis with no significant swelling. Re-Eval/Medical Decision Source of Hx: Old records, EMS Re-Evaluation/Progress #1: Time of Eval: 06:19 Re-Evaluation/Progress Note: Replaced bandage. Re-Evaluation/Progress #2: Time of Eval: 06:37 Re-Evaluation/Progress Note: Rechecked the patient. Discussed plan for discharge. All questions were addressed. Consultation : Referral / Consult Name: Vidal Brown MD Consulted With: Neurosurgery Call Returned at: 06:30 Global Supply Chain Vice President: Agrees with eval, Agrees with plan Note: Dr. Brown wants the patient seen by the PA today in the clinic. Counseled Regarding: Diagnosis, Need for follow-up, When/why to return to ED Discharge & Departure Impression: Primary Impression: Status post carpal tunnel release Additional Impressions: Pain and swelling of left wrist Constipation Constipation type: unspecified constipation type Qualified Code: K59.00 - Constipation, unspecified Disposition: Home Discharge Condition All VS Reviewed: Yes Condition: Stable Patient Instructions: Constipation (ED) Additional Instructions: Thank you for entrusting us with your care today. I spoke with the on-call physician for Dr. Puente. He would like you to be seen by their PA in the office today. Call this morning when the office is open to schedule the appointment. You can also purchase magnesium citrate over the counter. Don't use the magnesium citrate until you have spoken with the clinic to see when your appointment time is. Please return to the emergency department for any new or concerning symptoms. You can also use Dulcolax tablets which are also over- the-counter. Referrals: Angelito Lopez MD (PCP) Wilbur Puente MD Attestation Portions of this note were transcribed by Nayeli Mello. I, Dr. Martinez personally performed the history, physical exam and medical decision-making; I reviewed and confirmed the accuracy of the information in the transcribed note. Signed by: Gricel Dumont, 06/25/2016 at 0700. copies to: Wilbur Puente MD; Angelito Lopez MD, Kirk H MD Jun 25, 2016 06:03 Nayeli Mello Jun 25, 2016 06:07
== END 2016-06-25 07:20 | disposition home or self-care (01) ==
LOC: EDUNIT# 05:15 → EDBD 05:15 → SED 05:15
DX: M25.532 Pain in left wrist (principal); M79.89 Other specified soft tissue disorders; K59.00 Constipation, unspecified; I10 Essential (primary) hypertension; K21.9 Gastro-esophageal reflux disease without esophagitis; J44.9 Chronic obstructive pulmonary disease, unspecified; M06.9 Rheumatoid arthritis, unspecified; Z98.890 Other specified postprocedural states; Z87.891 Personal history of nicotine dependence